=== PATIENT | female | born 1975 | race Caucasian/White ===

== ENCOUNTER 2018-08-19 09:10 | Emergency (ER) | payer MEDICAID ==
[~2018-08-19] VITALS: Ht 167.6 cm; Wt 63.5 kg
[2018-08-19 09:16] VITALS: Ht 167.6 cm; Wt 63.5 kg
[2018-08-19 11:02] VITALS: BP 100/60
== END 2018-08-19 12:03 | disposition home or self-care (01) ==
LOC: ED 09:10
DX: N39.0 Urinary tract infection, site not specified (principal); R55 Syncope and collapse; E11.9 Type 2 diabetes mellitus without complications; Z85.42 Personal history of malignant neoplasm of other parts of uterus; Z91.09 Other allergy status, other than to drugs and biological substances
CPT/HCPCS: J0696; J2270; J2405; J7030